=== PATIENT | male | born 1985 | race Two or more races ===

== ENCOUNTER 2020-08-28 10:14 | Outpatient (REF) | payer BC, SELFPAY ==
--- NOTE | ~2020-08-28 | XR_ITS ---
EXAMINATION: XR FOOT, RIGHT CLINICAL INFORMATION: Pain in right foot COMPARISON: None TECHNIQUE: AP, lateral, and oblique views of the right foot. FINDINGS: No acute fracture or dislocation. There are well-corticated ossific densities adjacent the distal fibula may reflect sequelae of remote prior trauma. Normal mineralization and alignment. No radiopaque foreign body. XR/XR foot RT min 3V IMPRESSION: No acute osseous abnormality of the right foot.
== END 2020-08-28 10:15 | disposition home or self-care (01) ==
LOC: HO.HMGCX 10:14
PROVIDERS: PCP Nurse Practitioner Family; Visit Provider Hospitalist
DX: M79.671 Pain in right foot (principal)
CPT/HCPCS: 73630

== ENCOUNTER → 2020-10-06 09:04 | Outpatient (BNVA) | payer BC, SELFPAY | PROVIDERS: PCP Nurse Practitioner Family; Visit Provider Orthopaedic Surgery ==

== ENCOUNTER 2020-10-09 05:59 | Day surgery (SDC) | payer BC, SELFPAY ==
--- NOTE | 2020-10-08 10:52 | HO.ANESPROP2 ---
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: Yes Do you presently have visiting nurse or other home services: No Smoking Status: Never smoker Second Hand Smoke Exposure: No Use of substances other than those prescribed or required for medical reasons: No Advance Directives: No Advance Directives Information Provided: Yes Advance Directives on File: No Recently lost weight without trying: No Current occupational status: employed Current occupation: [employer] Allergies Allergy/AdvReac Type Severity Reaction Status Date / Time No Known Allergies Allergy Verified 10/09/20 06:18 Exam Exam Date and Time: October 08, 2020 105 Assessment and Plan Assessment Anesthesia Assessment: Chart Reviewed Documented by User: Yasmany Mejía MD 10/09/20 08:02 PMFSH Past Medical History Medical History No significant medical problems Surgical History Surgical History No pertinent past surgical history Social History Social History Are you a primary career development coordinator to a significant other at home: Yes Do you presently have visiting nurse or other home services: No Smoking Status: Never smoker Second Hand Smoke Exposure: No Use of substances other than those prescribed or required for medical reasons: No Advance Directives: No Advance Directives Information Provided: Yes Advance Directives on File: No Recently lost weight without trying: No Current occupational status: employed Current occupation: Teacher Meds Allergies Allergy/AdvReac Type Severity Reaction Status Date / Time No Known Allergies Allergy Verified 10/09/20 06:18 Exam Airway Mallampati Class: II TM Dist: >3cm Neck ROM: Full Loose/Missing/Broken Teeth: No Heart: RRR Assessment and Plan Assessment Anesthesia Assessment: Anesthesia Plan Discussed and Chart Reviewed Final Anesthetic Review NPO: Yes ASA Class: I Final Preanesthetic Review: No Changes in Pt Med Stat, Meds/Allgs Chart Reviewed, Consent Obtained/Reviewed and Anes Risks/Benef Reviewed Patient Risk: Low Procedure Risk: Low Anesthetic Plan Anesthetic Plan: GA Disposition: Standard PACU
[2020-10-09] VITALS (8 sets, daily range): BP systolic 112–130; BP diastolic 52–72; PULSE 41–64; RESP 14–16; TEMP 36.7–36.8; O2SAT 97–100; BMI 24.4
[2020-10-09] MEDS: Lactated Ringers 1,000 ML 100 ML IVCONT (06:49)
--- NOTE | 2020-10-09 08:50 | W.PM.OPN ---
Operative Note Operative Note Date of Service: 10/09/20 Narrative: OPERATIVE PROCEDURE NOTE SURGEON: Dr. Allen (Lupis) [employer] AUTISM [employer]OR SPECIALIST: No physician PREOP DIAGNOSIS: Left Achilles tendon rupture POSTOP DIAGNOSIS: Same OPERATIVE PROCEDURE: Operative fixation left Achilles tendon CLINICAL NOTE: This gentleman was playing basketball when he suffered an injury. Subsequently was shown to be and Achilles tendon rupture. Therefore after explaining the risks benefits and alternatives and answering all his questions it was mutually agreed upon to carry following procedure OPERATIVE PROCEDURE Under general anesthetic the patient was rolled into the prone position. The left thigh had a pneumatic tourniquet cuff placed around it. This was inflated to 300 mm of mercury at the beginning of the case. The left foot and ankle then prepped and draped in standard fashion. Surgical time-out was then performed. Patient was identified. Procedure confirmed. Site confirmed. Medical and allergy history were reviewed. All other items were discussed and agreed upon. Standard approach to the Achilles tendon was carried out. Taken down through subcutaneous tissues. Hemostasis she is a long ways electrocautery. This brought us down to the level of the rupture which was a little bit higher up than the usual on. However was still through tendon. There. T9 was a divided. The 2 ends were identified. The wound was then thoroughly irrigated. And 0 Dexon was then used in order to repair each and individually to given little bit of both. Following this in a bunnel suture fashion a 2. FiberWire was weaved through the proximal an with 2 tails coming out distally and similarly on the distal portion of the tendon a suture was weaved through the tendon to bring 2 sutures out proximally. At this point with the foot in plantar flexion the opposite and sutures were brought together tied down tightly and secured x2. This successfully brought the Achilles tendon together. The foot could move easily to neutral with without much tension on the repair. 0 Dexon was then used in order to reinforce the repair. At this point proceeded to closure. Wound was thoroughly irrigated. The paratenon in skin or approximated using interrupted 2-0 Dexon. The skin was closed with subcuticular V lock sutures. Dermabond and Steri-Strips and sterile dressing were then applied. The tourniquet was let down total tourniquet time of 31 minutes. A dorsal splint with the foot at resting neutral was then placed. The patient then had the anesthesia reversed. They were transferred supine to the room bed then taken to recovery room in good condition. Intraoperatively there was less than 10 cc blood loss. No complications
--- NOTE | 2020-10-09 08:55 | MHC.SHP ---
Pre-Procedural Eval Section A The patient is an INPATIENT: No Changes since office visit: No Cold of Flu in the past 2 weeks, No New Medical Problems, No Changes in Medication and No Patient answered all questions The History & Physical has been completed within 30 days and I have reviewed it.: Yes Section B Chief Complaint: Strain of Achilles Tendon Allergies: Allergies Allergy/AdvReac Type Severity Reaction Status Date / Time No Known Allergies Allergy Verified 10/09/20 06:18 Plan I have reviewed the history and physical and performed a pertinent physical examination on my patient. No changes have occurred unless specified.
[2020-10-09] MEDS: oxyCODONE HCl Immed Release 5 MG TABLET PO (08:59)
== END 2020-10-09 10:54 | disposition home or self-care (01) ==
PROVIDERS: PCP Nurse Practitioner Family; Visit Provider Orthopaedic Surgery
PROC: (CPT 27650; principal; 2020-10-09 07:30)
DX: S86.012A Strain of left Achilles tendon, initial encounter (principal); X58.XXXA Exposure to other specified factors, initial encounter; Y93.67 Activity, basketball; Y92.9 Unspecified place or not applicable; Y99.8 Other external cause status
CPT/HCPCS: 27650; J0131; J0690; J1100; J1170; J1885; J2250; J2405

== ENCOUNTER → 2020-10-20 08:56 | Outpatient (BNVA) | payer BC, SELFPAY | PROVIDERS: PCP Nurse Practitioner Family; Visit Provider Physician Assistant ==

== ENCOUNTER → 2020-11-17 14:20 | Outpatient (BNVA) | payer BC, SELFPAY | PROVIDERS: PCP Nurse Practitioner Family; Visit Provider Orthopaedic Surgery ==

== ENCOUNTER → 2020-12-15 13:03 | Outpatient (BNVA) | payer BC, SELFPAY | PROVIDERS: PCP Nurse Practitioner Family; Visit Provider Orthopaedic Surgery ==

== ENCOUNTER → 2021-02-02 09:26 | Outpatient (BNVA) | payer BC, SELFPAY | PROVIDERS: PCP Nurse Practitioner Family; Visit Provider Orthopaedic Surgery ==

== ENCOUNTER → 2021-03-22 15:26 | Outpatient (BNVA) | payer BC, SELFPAY | PROVIDERS: PCP Nurse Practitioner Family; Visit Provider Orthopaedic Surgery ==

== ENCOUNTER → 2021-06-21 08:43 | Outpatient (BNVA) | payer BC, SELFPAY | PROVIDERS: PCP Nurse Practitioner Family; Visit Provider Orthopaedic Surgery ==

== ENCOUNTER 2021-08-17 17:00 | Outpatient (RCR) | payer BC, SELFPAY ==
--- NOTE | 2021-04-07 17:59 | MHC.PT.EP ---
[facility] [place] Office [place] Office [place] Office [address] Jose M Herrera [address] [phone] F: [phone] F: [phone] F: [phone] F: [phone] Physical Therapy Plan of Care Date of Evaluation: Date of Surgery: 10/09/20 Diagnosis: This is a 35 yo male presenting to skilled PT with a script for s/p Achilles tendon repair. Assessment: This is a 35 yo male presenting to skilled PT with a script for s/p Achilles tendon repair. Patient comes to PT s/p repair on 10/09. He had PT at another facility for about 2 months following the repair. He was happy with results but states that his surgeon wants him to continue PT. He returns to the ortho in June for follow up visit. He reports in general feeling good but occasionally gets discomfort at the base of the heel where the Achilles inserts with being on his feet for prolonged periods of time. He enjoys playing pickup basketball but reports discomfort/achy with jogging during and after still. States that he has continued to stretch since DC'd from PT. Assessment reveals pain that ranges up to a 7/10 at the worst these days. He demos slight decreased ROM on L vs R, decreased L ankle and hip strength, impaired gait pattern with decreased ankle control and stability, hypomobility at ankle joint as well as gross functional decline with dynamic/higher level activities and prolonged positions. He is here for return to sport goals. He would benefit from podiatry referral for arch support. He is a good candidate for skilled PT 2x/wk for 6 wks. 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 Manual therapy to restore motion and function. Therapeutic exercise to improve strength and flexibility. Neuromuscular re-education for posture and balance. Therapeutic activities to return to functional activities of daily living. Electronically signed by: Bobbi Dubuc, PT Please sign and return to therapist. Thank you for your referral.
--- NOTE | 2021-08-18 07:42 | MHC.PT.DC ---
[facility] [place] Office [place] Office [place] Office [address] Jose M Herrera [address] [phone] F: [phone] F: [phone] F: [phone] F: [phone] Physical Therapy Discharge Report Diagnosis: This is a 35 yo male presenting to skilled PT with a script for s/p Achilles tendon repair. Date of Surgery: 10/09/20 Date of Evaluation: 04/07/21 Date of Discharge: 08/18/21 Treatments to Date: 15 Cancellations to Date: 2 No Shows to Date: 0 Discharge Status: Achieved Goals Improved Function Independent with HEP Discharge Summary: Pt has come to 15 appointments starting in mar with evaluation. He demos normal gait pattern and has achieved all PT goals. He demos ROM and strength WNL and he was noted to have improved balance, strength and tissue density since starting PT. He has a copy of HEP and jump program. He has improved his LEFs to 79/80. At this time pt DC with HEP and no longer needs skilled physical therapy at this time. Electronically signed by: Bobbi Keith, PT Please sign and return to therapist. Thank you for your referral.
== END 2021-08-18 07:42 | disposition home or self-care (01) ==
LOC: HO.PTCHIC 17:00
PROVIDERS: PCP Nurse Practitioner Family; Visit Provider Orthopaedic Surgery
DX: Z98.890 Other specified postprocedural states (principal)
CPT/HCPCS: 97110; 97112; 97140; 97161; 97162; 97530

== ENCOUNTER 2022-04-04 07:03 | Outpatient (REF) | payer BC, SELFPAY ==
[2022-04-04 11:38] LABS: Appearance Urine Clear; Color Urine Yellow; Glucose Urine UA Negative (Negative); Leukocyte Esterase Urine Negative (Negative); Nitrite Urine Negative (Negative); PH 7.5 (5.0-9.0); Urine Blood Negative (Negative); Urine Ketones Negative (Negative); Urine Protein Negative (Neg-Trace)
[2022-04-04 12:21] LABS: TSH reflex Free T4 2.34 uIU/mL (0.32-4.0)
[2022-04-04 12:24] LABS: Alanine Aminotransferase 29 U/L (0-40); Albumin Level 4.4 g/dL (3.5-5.0); Alkaline Phosphatase 52 U/L (39-117); Anion Gap 13 (12-20); Aspartate Amino Transferase 23 U/L (5-37); Bilirubin Total 1.3 mg/dL (0.0-1.0); Blood Urea Nitrogen 15 mg/dL (9-16); Calcium 9.6 mg/dL (8.4-10.2); Carbon Dioxide 27 mmol/L (22-29); Chloride 102 mmol/L (96-108); Cholesterol 178 mg/dL; Estimated Glomerular Filt Rate > 60; Glucose Fasting 95 mg/dL (60-99); HDL Cholesterol 63 mg/dL; LDL Cholesterol Calculated 108 mg/dl; Potassium 3.8 mmol/L (3.3-5.1); Sodium 138 mmol/L (135-145); Total Protein 6.9 g/dL (6.5-8.0); Triglycerides 36 mg/dL
== END 2022-04-04 07:04 | disposition home or self-care (01) ==
LOC: HO.HMGCLDS 07:03
PROVIDERS: PCP Nurse Practitioner Family; Visit Provider Nurse Practitioner Family
DX: Z00.00 Encounter for general adult medical examination without abnormal findings (principal)
CPT/HCPCS: 36415; 80053; 80061; 81003; 84443

== ENCOUNTER 2023-04-21 08:05 | Outpatient (AMB) | payer BC, SELFPAY ==
--- NOTE | 2023-04-21 08:10 | MHC.OFFWIV ---
Intake Vital Signs 04/21/23 08:11 Weight 177 lb BP 110/60 Blood Pressure Location Lt brachial Position Sitting Pulse 47 L Pulse Source Pulse Oximeter Pulse Oximetry (%) 98 Oxygen Delivery Method Room Air Intake Visit Reasons: EP ?Strep Intake Note: Patient here for possible strep throat, he states sore throat started last night. Patient Tobacco Use Status: Never used Tobacco Allergies No Known Allergies Allergy (Verified 04/21/23 08:12) Do you need a note to return to daycare/school/sports/work: Yes HPI HPI Comments History of Present Illness Details This is a 37-year-old male who presents to the office today for sick visit. Patient complaining of sore throat, congestion/rhinorrhea, and a mild dry cough with associated fatigue x1 day. He denies any fevers or chills. He denies any throat swelling or trouble swallowing. [facility] Medical History No significant medical problems Surgical History No pertinent past surgical history Family History Maternal Uncle Substance use disorder Father Substance use disorder Social History Housing: House Are you a primary director career services to a significant other at home: Yes Do you presently have visiting nurse or other home services: No Patient Tobacco Use Status: Never used Tobacco e-Cigarette/Vaping Use: Never Used Second Hand Smoke Exposure: No service: No Current occupational status: employed Current occupation: Teacher [employer] Current occupational exposures/hazards: Yes Cognitive needs: No Hearing needs: No Vision needs: No Review of Systems Const All systems reviewed & are unremarkable except as noted in HPI and below Reports no additional complaints Eyes Reports no additional complaints ENT Reports no additional complaints Card Reports no additional complaints Resp Reports no additional complaints GI Reports no additional complaints Reports no additional complaints Musc Reports no additional complaints Skin/Breast Reports system reviewed and no additional complaints, except as documented Neuro Reports no additional complaints Psych Reports no additional complaints Endo Reports no additional complaints Ata/Lymph Reports no additional complaints Aller/Immun Reports no additional complaints Physical Exam Vital Signs: Last Vital Signs Pulse 47 L 04/21/23 08:11 BP 110/60 04/21/23 08:11 Pulse Ox 98 04/21/23 08:11 Oxygen Delivery Method Room Air 04/21/23 08:11 Const Other: Vital signs reviewed. Constitutional: Non-toxic appearing. No acute distress. Well-developed and well-nourished. HEENT: Normocephalic and atraumatic. Moist mucous membranes. Mild posterior pharyngeal erythema but no exudates. Skin: Warm and dry. No rashes or lesions noted. Neck: Full and painless range of motion. No cervical lymphadenopathy. Cardio: Regular rate and rhythm. No lower extremity edema. No JVD. Pulmonary: No respiratory distress. No accessory muscle usage. Gastrointestinal: Soft, nontender, and nondistended in all 4 quadrants. Musculoskeletal: Normal range of motion in joints throughout the body. No deformity or other signs of injury. Neuro: Alert and oriented x4. Cranial nerves 2-12 grossly intact. No focal deficits appreciated. Psych: Normal mood and affect. Results AMB Rapid Strep AMB Rapid Strep Negative Last Edit by JEROMY Hill on 04/21/23 08:24 Results Reviewed Results Reviewed: Laboratory Last Values Strep Scn Rapid Clinic Negative 04/21/23 08:23 Assessment & Plan Assessment & Plan (1) Viral pharyngitis: Code(s): J02.9 - Acute pharyngitis, unspecified (2) Viral URI with cough: Code(s): J06.9 - Acute upper respiratory infection, unspecified Plan This 37 year in the office complaining of sore throat, congestion/, dry cough, and mild fatigue x1 day. His rapid strep test was negative. Patient's vital signs are stable he is overall nontoxic appearing. Patient presenting with signs and symptoms most consistent with acute respiratory tract infection and viral pharyngitis. Recommended symptomatic management including rest, increased fluids, advil/tylenol for pain/fever, and over the counter throat lozenges/decongestants. Patient advised to follow up here or go to the emergency room for worsening/persistent symptoms. Patient verbalized understanding and is agreeable with the plan. Orders: Orders AMB Rapid Strep Screen Today Z13.9 - Encounter for screening, unspecified Coding Level of Care Code Est Pt Level 3 (11869) Diagnoses Viral pharyngitis J02.9 Viral URI with cough J06.9
[2023-04-21 08:11] VITALS: BP 110/60; PULSE 47; O2SAT 98
== END 2023-04-21 08:54 | disposition home or self-care (01) ==
PROVIDERS: PCP Nurse Practitioner Family; Visit Provider Physician Assistant Medical
DX: J02.9 Acute pharyngitis, unspecified (principal); J06.9 Acute upper respiratory infection, unspecified
CPT/HCPCS: 87880; 99213

== ENCOUNTER 2023-04-21 08:28 | Outpatient (REF) | payer BC, SELFPAY ==
[2023-04-21 11:49] LABS: Appearance Urine Clear; Color Urine Yellow; Glucose Urine UA Negative (Negative); Leukocyte Esterase Urine Negative (Negative); Nitrite Urine Negative (Negative); PH 8.5 (5.0-9.0); Specific Gravity - Urine 1.025 (1.005-1.025); Urine Blood Negative (Negative); Urine Ketones Negative (Negative); Urine Protein Trace mg/dL (Neg-Trace)
[2023-04-21 11:54] LABS: MANUAL DIFF FLAG NO
[2023-04-21 12:05] LABS: Basophils Percent Auto 0.1 % (0-2); Eosinophils Absolute Auto 0.2 X10*3/uL (0.0-0.4); Eosinophils Percent Auto 1.8 % (0-4); Hematocrit 49.1 % (42.0-52.0); Hemoglobin 16.1 g/dl (14.0-18.0); Imm Gran Abs Auto 0.01 X10*3/uL (0.00-0.03); Imm Gran Pct Auto 0.1 % (0.0-0.4); Lymphocytes Percent Auto 23.7 % (20-40); Mean Corpuscular HGB Conc 32.8 g/dl (31.0-36.0); Mean Corpuscular Hemoglobin 29.5 pg (27.0-33.0); Mean Corpuscular Volume 90.1 fL (80.0-98.0); Mean Platelet Volume 11.1 fL (9.4-12.4); Monocytes Absolute Auto 0.8 X10*3/uL (0.1-1.2); Monocytes Percent Auto 9.6 % (2-11); Neutrophils Absolute Auto 5.5 x10*3/uL (2.0-8.3); Neutrophils Percent Auto 64.7 % (45-73); Platelet Count 191 X10*3/uL (160-400); Red Blood Count 5.45 X10*6/uL (4.60-5.80); Red Cell Distribution Width 12.2 % (11.0-16.0); White Blood Count 8.5 X10*3/uL (4.8-10.8)
[2023-04-21 13:09] LABS: Alanine Aminotransferase 27 U/L (0-40); Albumin Level 4.4 g/dL (3.5-5.0); Alkaline Phosphatase 54 U/L (39-117); Anion Gap 14 (12-20); Aspartate Amino Transferase 50 U/L (5-37); Bilirubin Total 2.2 mg/dL (0.0-1.0); Blood Urea Nitrogen 15 mg/dL (9-16); Calcium 9.9 mg/dL (8.4-10.2); Carbon Dioxide 27 mmol/L (22-29); Chloride 102 mmol/L (96-108); Cholesterol 177 mg/dL (<200); Estimated Glomerular Filt Rate > 60; Glucose Fasting 91 mg/dL (60-99); HDL Cholesterol 71 mg/dL (>40); LDL Cholesterol Calculated 96 mg/dL (<100); Potassium 4.2 mmol/L (3.3-5.1); Sodium 139 mmol/L (135-145); Total Protein 7.4 g/dL (6.5-8.0); Triglycerides 52 mg/dL (<150)
[2023-04-21 13:20] LABS: TSH reflex Free T4 1.29 uIU/mL (0.32-4.0)
== END 2023-04-21 08:29 | disposition home or self-care (01) ==
LOC: HO.HMGCLDS 08:28
PROVIDERS: PCP Nurse Practitioner Family; Visit Provider Nurse Practitioner Family
DX: Z00.00 Encounter for general adult medical examination without abnormal findings (principal); Z20.2 Contact with and (suspected) exposure to infections with a predominantly sexual mode of transmission; Z13.220 Encounter for screening for lipoid disorders; Z13.29 Encounter for screening for other suspected endocrine disorder
CPT/HCPCS: 36415; 80053; 80061; 81003; 84443; 85025

== ENCOUNTER 2023-05-02 10:28 | Outpatient (REF) | payer BC, SELFPAY ==
--- NOTE | ~2023-05-02 | US_ITS ---
EXAMINATION: US ABDOMEN COMPLETE CLINICAL INFORMATION: Elevated liver enzymes. COMPARISON: Ultrasound abdomen complete 08/03/2017. TECHNIQUE: Real-time imaging of the abdominal viscera. FINDINGS: PANCREAS: Pancreatic head is unremarkable, body and tail are obscured. ABDOMINAL AORTA: The proximal, mid, and distal segments are normal in caliber. INFERIOR VENA CAVA: Visualized portions are normal. LIVER: Multiple hyperechoic lesions are again identified, in the left lobe measuring 1.9 x 1.6 cm, previously 2.1 x 1.8 x 2.5 cm. In the right lobe, 0.8 x 0.7 x 0.7 cm subcapsular anterior superior hyperechoic lesion is seen, not previously documented. 1.0 x 1.1 x 1.0 cm right hepatic lesion previously measured 1.2 cm maximally. Second adjacent right hepatic lesion seen on previous study not identified on today's study. The liver is normal in size. The liver contour is normal. Parenchymal echogenicity is normal. There is no intrahepatic biliary duct dilatation seen. GALLBLADDER: Echogenic bile with floating debris. The gallbladder is physiologically distended without evidence of stones, polyps, wall thickening or pericholecystic fluid. COMMON BILE DUCT: Normal in caliber measuring 0.37 cm in diameter. RIGHT KIDNEY: Normal. No hydronephrosis. No renal calculi or focal parenchymal lesions. The kidney measures 11.7 cm in maximum dimension. LEFT KIDNEY: Normal. No hydronephrosis. No renal calculi or focal parenchymal lesions. The kidney measures 10.8 cm in maximum dimension. SPLEEN: Normal. The spleen measures 10.7 cm in maximum dimension. FREE FLUID: None. US/US abdomen complete IMPRESSION: Redemonstration multiple hepatic hyperechoic lesions consistent with hemangiomas. Gallbladder echogenic bile with debris.
== END 2023-05-02 10:29 | disposition home or self-care (01) ==
LOC: HO.HMGCX 10:28
PROVIDERS: PCP Nurse Practitioner Family; Visit Provider Nurse Practitioner Family
DX: R74.8 Abnormal levels of other serum enzymes (principal)
CPT/HCPCS: 76700

== ENCOUNTER 2023-06-21 11:08 | Outpatient (REF) | payer BC, SELFPAY ==
[2023-06-21 13:41] LABS: Bilirubin Direct 0.4 mg/dL (0.0-0.5); Bilirubin Total 1.2 mg/dL (0.0-1.0)
[2023-06-22 08:02] LABS: HBS Num1 51.44 mIU/mL (0-7.99); HBc Num1 0.12 S/CO (0.00-0.79); HBsAGNum1 0.32 S/CO (0.00-0.99); Hepatitis A Antibody IgM 0.09 Index (0-0.79); Hepatitis B Core Antibody Nonreactive (Nonreactive); Hepatitis B Surface Antigen Negative (Negative); ~HepC Num1 0.36 S/CO (0.00-0.79); ~Hepatitis A Antibody IgM Nonreactive (Nonreactive); ~Hepatitis B Surface Antibody REACTIVE (Nonreactive); ~Hepatitis C Antibody Nonreactive (Nonreactive)
== END 2023-06-21 11:09 | disposition home or self-care (01) ==
LOC: HO.HMGCLDS 11:08
PROVIDERS: PCP Nurse Practitioner Family; Visit Provider Nurse Practitioner Family
DX: R74.8 Abnormal levels of other serum enzymes (principal); R17 Unspecified jaundice
CPT/HCPCS: 36415; 82247; 82248; 86704; 86706; 86709; 86803; 87340

== ENCOUNTER 2023-07-25 10:56 | Outpatient (AMB) | payer BC, SELFPAY ==
--- NOTE | 2023-07-25 10:58 | MHC.PC.OV ---
Vital Signs 07/25/23 11:00 Height 6 ft Weight 174 lb BMI 23.6 BP 110/70 Blood Pressure Location Lt brachial Position Sitting Pulse 61 Pulse Source Pulse Oximeter Pulse Oximetry (%) 99 Oxygen Delivery Method Room Air Intake Visit Reasons: PE Intake Note: Patient here for physical exam and labs were done. Allergies No Known Allergies Allergy (Verified 07/25/23 11:01) Tobacco use date assessed: 07/25/23 Dental Screening Dental Screen Date: 07/25/23 Did you have a dental visit in the last 12 months?: Yes Did you have a dental problem in the last 6 months where you did not have access to dental care?: No Was dental information given to patient?: Patient has dentist HPI PE HPI Details Pt is here for a PE. Will order labs. 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 1. Little interest or pleasure in doing things: not at all 2. Feeling down, depressed, or hopeless: not at all 3. Trouble falling or staying asleep, or sleeping too much: not at all 4. Feeling tired or having little energy: several days 5. Poor appetite or overeating: not at all 6. Feeling bad about yourself - or that you are a failure or have let yourself or your family down: not at all 7. Trouble concentrating on things, such as reading the newspaper or watching television: not at all 8. Moving or speaking so slowly that other people could have noticed. Or the opposite - being so fidgety or restless that you have been moving around a lot more than usual: not at all 9. Thoughts that you would be better off or of hurting yourself in some way: not at all Total score: 1 Depression Screening Interpretation: Negative Depression Screening Done: Yes 09045 - PHQ-9 Billing: Yes Source: Developed by Drs. Roberto Carlos Taylor, Stephanie Funes, Jesse Chauhan and colleagues, with an educational ervin from [email or web address]. Thrive Questionnaire Date Thrive assessed: 07/25/23 I am a: Patient What is your living situation today?: I have a steady place to live Within the past 12 months, did the food you bought not last and you didn't have the money to get more?: Never true Within the past 12 months, did you worry whether your food would run out before you got money to buy more?: Never true Do you have trouble paying for medicines?: No Do you have trouble getting transportation to medical appointments?: No Do you have trouble paying your heating and electricity bill?: No Do you have trouble taking care of your child, family member or friend?: No Do you have trouble with day-to-day activities such as bathing, preparing meals, shopping, managing finances, etc.?: No Are you currently unemployed and looking for a job?: No Are you interested in more education?: No AUDIT C Alcohol Use Questionnaire (AUDIT-C) 1. How often do you have a drink containing alcohol?: Monthly or less 2. How many drinks containing alcohol do you have on a typical day when you are drinking?: 3 or 4 3. How often do you have six or more drinks on one occasion?: Never Total Score: 2 CHRISTINE-7 AMB Questionnaire CHRISTINE-7 Date CHRISTINE - 7 assessed: 07/25/23 Feeling nervous, anxious, or on edge: 0 = Not at all Not being able to stop or control worryin = Not at all Worrying too much about different things: 0 = Not at all Trouble relaxin = Not at all Being so restless that it is hard to sit still: 0 = Not at all Becoming easily annoyed or irritable: 0 = Not at all Feeling afraid as if something awful might happen: 0 = Not at all Total CHRISTINE-7 score (0-4 normal; 5-9 mild; 10-14 moderate; 15-21 severe): 0 Source: Developed by Drs. Roberto Carlos Taylor, Stephanie Funes, Jesse Chauhan and colleagues, with an educational ervin from [email or web address]. CHRISTINE-7 Assessment Billing CHRISTINE-7 Assessment Tool: CHRISTINE-7 Assessment 35419 Review of Systems Const Denies chills and Denies fever(s) Eyes Denies blurry vision ENT Denies vertigo, Denies dizziness and Denies sore throat Card Denies chest pain at rest, Denies chest pain with activity, Denies diaphoresis, Denies dyspnea and Denies dyspnea on exertion Resp Denies cough, Denies dyspnea, Denies dyspnea on exertion and Denies wheezing GI Denies abdominal pain, Denies melena, Denies hematochezia, Denies constipation, Denies diarrhea and Denies loose stools Denies hematuria Musc Denies numbness and Denies tingling Skin/Breast Denies lesions Neuro Denies vertigo, Denies dizziness, Denies numbness and Denies tingling Psych Denies anxiety, Denies depression, Denies homicidal ideation, Denies suicidal ideation and Denies other (substance abuse) Aller/Immun Denies wheezing Physical exam (Primary Care) Vital Signs: Last Vital Signs Pulse 61 07/25/23 11:00 BP 110/70 07/25/23 11:00 Pulse Ox 99 07/25/23 11:00 Oxygen Delivery Method Room Air 07/25/23 11:00 BMI result Body Mass Index 23.6 Tobacco/Smoking Status: Tobacco use Status Tobacco use date assessed 07/25/23 07/25/23 11:03 Patient Tobacco Use Status Never used Tobacco 07/25/23 11:00 e-Cigarette/Vaping Use Never Used 07/25/23 11:00 Depression Screening Interpretation: Negative Thrive Assessment: Date of Thrive Assessment Date Thrive assessed 07/20/22 07/25/23 11:00 Const General: cooperative Nutritional Appearance: well nourished Orientation/consciousness: patient oriented x3 HENMT Head: Yes normal to inspection, Yes normocephalic and Yes atraumatic Ears: TM's normal bilaterally Eyes General: appearance normal, both eyes and all related structures Alignment and Position: alignment normal and position normal Neck Neck: Yes normal visual inspection and Yes no lymphadenopathy Thyroid: Thyroid normal Resp Effort & Inspection: normal respiratory effort Auscultation: clear to auscultation bilaterally Cardio Rate: regular rate Rhythm: regular rhythm Heart sounds: S1 normal heart sound present, S2 normal heart sound present and no murmurs GI Palpation (GI): Soft to palpation and nontender Auscultation: normal bowel sounds Male General Exam: Yes normal external exam Penis: normal penis Scrotum: scrotum normal, testes descended bilaterally and no inguinal hernias Testes: no testicular mass Skin Rashes: no rashes Neuro General: patient oriented x3, moves all extremities, no focal motor deficits and deep tendon reflexes 2+ bilaterally Romberg Test: Negative Psych Appearance: grossly normal Mental Status: mental status grossly normal Speech and movement: Normal speech and movement present Affect: normal affect Attitude: cooperative Thought process: Normal thought process present Thought content: Normal thought content present Insight: Good insight present (Psych) Judgement: Good judgement present (Psych) Assessment and Plan Assessment & Plan (1) Physical exam, annual: Code(s): Z. - Encounter for general adult medical examination without abnormal findings Plan: Labs ordered Plan The patient agreed to the use of a medical imaging director for this encounter. Scribed for CATY Escalante by Asmita George medical imaging director, on 07/25/2023 at 11:15 EST. Orders: Orders Complete Blood Count Auto Diff Today Z00.00 - Encounter for general adult medical examination without abnormal findings Comprehensive [place]. Panel Fast Today Z00.00 - Encounter for general adult medical examination without abnormal findings TSH reflex Free T4 Today Z00.00 - Encounter for general adult medical examination without abnormal findings Lipid Panel Today Z00.00 - Encounter for general adult medical examination without abnormal findings UA CC w/rflx Micro + Cult Today Z00.00 - Encounter for general adult medical examination without abnormal findings Coding Level of Care Code Est Pt Prev Care 40-64y(61960) Diagnoses Physical exam, annual Z00.00 Additional Codes CHRISTINE-7 Assessment Billing - CHRISTINE-7 Assessment Tool: CHRISTINE-7 Assessment 95385 ([id number])
[2023-07-25 11:00] VITALS: BP 110/70; PULSE 61; O2SAT 99; BMI 23.6
== END 2023-07-25 11:20 | disposition home or self-care (01) ==
PROVIDERS: Visit Provider Nurse Practitioner Family
DX: Z00.00 Encounter for general adult medical examination without abnormal findings (principal)
CPT/HCPCS: 99396

== ENCOUNTER 2023-07-25 11:22 | Outpatient (REF) | payer BC, SELFPAY ==
[2023-07-25 13:29] LABS: Appearance Urine Cloudy; Color Urine Yellow; Glucose Urine UA Negative (Negative); Leukocyte Esterase Urine Negative (Negative); Nitrite Urine Negative (Negative); Specific Gravity - Urine 1.025 (1.005-1.025); Urine Blood Negative (Negative); Urine Ketones Negative (Negative); Urine Protein Negative (Neg-Trace)
[2023-07-25 13:30] LABS: MANUAL DIFF FLAG NO
[2023-07-25 13:34] LABS: Basophils Percent Auto 0.2 % (0-2); Eosinophils Absolute Auto 0.1 X10*3/uL (0.0-0.4); Eosinophils Percent Auto 2.1 % (0-4); Hematocrit 45.8 % (42.0-52.0); Hemoglobin 15.3 g/dl (14.0-18.0); Imm Gran Abs Auto 0.01 X10*3/uL (0.00-0.03); Imm Gran Pct Auto 0.2 % (0.0-0.4); Lymphocytes Absolute Auto 1.9 X10*3/uL (1.2-4.9); Lymphocytes Percent Auto 43.8 % (20-40); Mean Corpuscular HGB Conc 33.4 g/dl (31.0-36.0); Mean Corpuscular Hemoglobin 29.9 pg (27.0-33.0); Mean Corpuscular Volume 89.6 fL (80.0-98.0); Mean Platelet Volume 10.9 fL (9.4-12.4); Monocytes Absolute Auto 0.3 X10*3/uL (0.1-1.2); Monocytes Percent Auto 7.7 % (2-11); Platelet Count 193 X10*3/uL (160-400); Red Blood Count 5.11 X10*6/uL (4.60-5.80); Red Cell Distribution Width 11.9 % (11.0-16.0); White Blood Count 4.3 X10*3/uL (4.8-10.8)
[2023-07-25 13:57] LABS: Alanine Aminotransferase 21 U/L (0-40); Albumin Level 4.3 g/dL (3.5-5.0); Alkaline Phosphatase 57 U/L (39-117); Anion Gap 9 (12-20); Aspartate Amino Transferase 23 U/L (5-37); Blood Urea Nitrogen 15 mg/dL (9-16); Calcium 9.6 mg/dL (8.4-10.2); Carbon Dioxide 30 mmol/L (22-29); Chloride 103 mmol/L (96-108); Cholesterol 188 mg/dL (<200); Estimated Glomerular Filt Rate > 60; Glucose Fasting 86 mg/dL (60-99); HDL Cholesterol 65 mg/dL (>40); LDL Cholesterol Calculated 115 mg/dL (<100); Sodium 138 mmol/L (135-145); Total Protein 7.2 g/dL (6.5-8.0); Triglycerides 43 mg/dL (<150)
[2023-07-25 14:22] LABS: TSH reflex Free T4 1.14 uIU/mL (0.32-4.0)
== END 2023-07-25 11:23 | disposition home or self-care (01) ==
LOC: HO.HMGCLDS 11:22
PROVIDERS: PCP Nurse Practitioner Family; Visit Provider Nurse Practitioner Family
DX: Z00.00 Encounter for general adult medical examination without abnormal findings (principal)
CPT/HCPCS: 36415; 80053; 80061; 81003; 84443; 85025

== ENCOUNTER 2023-08-16 09:45 | Outpatient (REF) | payer BC, SELFPAY ==
[2023-08-16 14:25] LABS: Influenza A PCR POSITIVE (Negative); Influenza B PCR NEGATIVE (Negative); Resp Syncy Virus RNA Qual PCR NEGATIVE (Negative); SARS COV2 PCR INHOUSE NEGATIVE (Negative)
== END 2023-08-16 09:46 | disposition home or self-care (01) ==
LOC: HO.HMGCLNP 09:45
PROVIDERS: Visit Provider Physician Assistant
DX: Z11.52 Encounter for screening for COVID-19 (principal); Z20.822 Contact with and (suspected) exposure to COVID-19; J11.1 Influenza due to unidentified influenza virus with other respiratory manifestations
CPT/HCPCS: 0241U

== ENCOUNTER 2023-08-16 09:45 | Outpatient (AMB) | payer BC, SELFPAY ==
--- NOTE | 2023-08-16 09:48 | MHC.OFFWIV ---
Intake Vital Signs 08/16/23 09:49 Height 6 ft Weight 181 lb BMI 24.5 BP 120/76 Blood Pressure Location Lt brachial Position Sitting Pulse 74 Pulse Source Pulse Oximeter Temp 100.7 F H Temp Source Temporal Artery Scan Pulse Oximetry (%) 97 Oxygen Delivery Method Room Air Intake Visit Reasons: EP Headache, fever, cough (masked) Intake Note: pt is here today for headache fever cough started monday Patient Tobacco Use Status: Never used Tobacco Allergies No Known Allergies Allergy (Verified 08/16/23 09:53) Do you need a note to return to daycare/school/sports/work: Yes HPI HPI Comments History of Present Illness Details Patient is a 38yo M who presents to office with flu like illness He started with symptoms Monday He thought cold; had congestion, cough, headache Monday home sick Monday fever onset; 101 Taking tylenol at home for it. Last dose was last night +body aches, fatigue, congestion, cough okay appetitie without nausea, vomiting or diarrhea Tried OTC cough.cold symptoms and liquid IV COVID test negative at home Daughter +sick on Monday [facility] Medical History No significant medical problems Surgical History No pertinent past surgical history Family History Maternal Uncle Substance use disorder Father Substance use disorder Social History Housing: House Are you a primary healthcare management to a significant other at home: Yes Do you presently have visiting nurse or other home services: No Patient Tobacco Use Status: Never used Tobacco e-Cigarette/Vaping Use: Never Used Second Hand Smoke Exposure: No service: No Current occupational status: employed 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 Cognitive needs: No Hearing needs: No Vision needs: No Review of Systems Const Reports body aches, Reports chills, Reports fatigue and Reports fever(s) Eyes Denies blurry vision ENT Denies dizziness, Denies otalgia, Reports nasal congestion, Reports nasal discharge and Denies sore throat Card Denies chest pain and Denies dyspnea Resp Reports cough and Denies dyspnea GI Denies abdominal pain, Denies diarrhea, Denies nausea and Denies vomiting Neuro Denies dizziness Endo Reports fatigue Physical Exam Vital Signs: Last Vital Signs Temp 100.7 F H 08/16/23 09:49 Pulse 74 08/16/23 09:49 BP 120/76 08/16/23 09:49 Pulse Ox 97 08/16/23 09:49 Oxygen Delivery Method Room Air 08/16/23 09:49 BMI result Body Mass Index 24.5 General: Non-toxic, NAD. Speaking full sentences. Skin: Warm dry throughout Eye: EOMI HENT: Airway patent. Uvula midline. No pharyngeal erythema or edema. No WAIST FITTER. Bilateral canals clear. TM slight-erythematous, non-bulging. No TM perforation or hemotympanum noted. Respiratory: CTA bilaterally. No wheezes, rales or rhonchi Cardiac: RRR. No murmur MSK: Full ROM extremities. Neurology: A/O, No aphasia or facial droop. Gait without abnormality Psych: Good mood and affect Assessment & Plan Assessment & Plan (1) Influenza-like illness: Code(s): J11.1 - Influenza due to unidentified influenza virus with other respiratory manifestations Plan: control fever with tylenol/motrin fluids/rest rsv/flu/covid swab obtained Call office with concerns Answered all questions at time of discharge Work note provided. Orders: Orders SARS-CoV2/FLU/RSV Today J11.1 - Influenza due to unidentified influenza virus with other respiratory manifestations Medications: New oseltamivir (Tamiflu) 75 mg PO BID 5 days 10 caps 0RF Coding Level of Care Code Est Pt Level 3 (61358) Diagnoses Influenza-like illness J11.1
[2023-08-16 09:49] VITALS: BP 120/76; PULSE 74; TEMP 38.2; O2SAT 97; BMI 24.5
== END 2023-08-16 10:11 | disposition home or self-care (01) ==
PROVIDERS: PCP Nurse Practitioner Family; Visit Provider Physician Assistant
DX: J11.1 Influenza due to unidentified influenza virus with other respiratory manifestations (principal)
CPT/HCPCS: 99213

== ENCOUNTER 2024-07-31 13:11 | Outpatient (REF) | payer BC, SELFPAY ==
--- OUTSIDE RECORDS SUMMARY | 2024-07-31 15:08 | XMS_ITS | Clinical Summary ---
Author Organization [employer] [facility] ity Address [address] [place] [address] Care Team Providers Care Net Fisher Name Role Phone Unavailable Primary Care Provider Unavailabl e Social History Tobacco Use Types Packs/Day Years Used Date Smoking Tobacco: Never Assessed Sex and Gender Information Value Date Recorded Sex Assigned at Not on file Gender Identity Not on file Sexual Orientation Not on file Plan of Treatment Health Maintenance Due Date Last Done Comments Hepatitis B Vaccines (1 of 3 - 19+ 3-dose series) 2002 Cholesterol Screening (Lipid Panel) 06/07/2022 Depression Screening 06/07/2022 HIV Screening 06/07/2022 Hepatitis C Screening 06/07/2022 Social Influencers of Health Screening 06/07/2022 COVID-19 Vaccine (1 - 2023-2 5 season) 2024 Influenza Vaccine (#1) 2024 DTaP,Tdap,and Td Vaccines (2 - Td or Tdap) 04/22/2032 04/22/2022 HIB Vaccines Aged Out No longer eligi ble based on patient's age to complete this topic HPV Vaccines Aged Out No longer eligi ble based on patient's age to complete this topic Hepatitis A Vaccines Aged Out No long er eligible based on patient's age to complete this topic IPV Vaccines Aged Out No longer eligi ble based on patient's age to complete this topic MMR Vaccines Aged Out No longer eligi ble based on patient's age to complete this topic Meningococcal ACWY Vaccine Aged Out N o longer eligible based on patient's age to complete this topic Pneumococcal Vaccine: Pediat rics (0 to 5 Years) and At-Risk Patients (6 to 64 Years) Aged Out No longer eligi ble based on patient's age to complete this topic RSV Immunization Patients Un marcy 20 months Aged Out No longer eligible b ased on patient's age to complete this topic Varicella Vaccines Aged Out No longer eligible based on patient's age to complete this topic
[2024-07-31 16:29] LABS: MANUAL DIFF FLAG NO
[2024-07-31 16:34] LABS: Basophils Percent Auto 0.1 % (0-2); Eosinophils Absolute Auto 0.2 X10*3/uL (0.0-0.4); Eosinophils Percent Auto 2.1 % (0-4); Hematocrit 43.5 % (42.0-52.0); Hemoglobin 14.3 g/dl (14.0-18.0); Imm Gran Abs Auto 0.03 X10*3/uL (0.00-0.03); Imm Gran Pct Auto 0.4 % (0.0-0.4); Lymphocytes Percent Auto 23.9 % (20-40); Mean Corpuscular HGB Conc 32.9 g/dl (31.0-36.0); Mean Corpuscular Hemoglobin 29.4 pg (27.0-33.0); Mean Corpuscular Volume 89.3 fL (80.0-98.0); Monocytes Absolute Auto 0.5 X10*3/uL (0.1-1.2); Monocytes Percent Auto 6.6 % (2-11); Neutrophils Absolute Auto 5.5 x10*3/uL (2.0-8.3); Neutrophils Percent Auto 66.9 % (45-73); Platelet Count 196 X10*3/uL (160-400); Red Blood Count 4.87 X10*6/uL (4.60-5.80); Red Cell Distribution Width 11.9 % (11.0-16.0); White Blood Count 8.2 X10*3/uL (4.8-10.8)
[2024-07-31 16:57] LABS: Alanine Aminotransferase 18 U/L (0-40); Albumin Level 4.1 g/dL (3.5-5.0); Alkaline Phosphatase 58 U/L (39-117); Aspartate Amino Transferase 26 U/L (5-37); Bilirubin Direct 0.4 mg/dL (0.0-0.5); Bilirubin Total 1.3 mg/dL (0.0-1.0); Lactate Dehydrogenase 199 U/L (118-273); Total Protein 7.2 g/dL (6.5-8.0)
== END 2024-07-31 13:12 | disposition home or self-care (01) ==
LOC: HO.HMGCLDS 13:11
PROVIDERS: PCP Nurse Practitioner Family; Visit Provider Nurse Practitioner Family
DX: R17 Unspecified jaundice (principal); D72.819 Decreased white blood cell count, unspecified
CPT/HCPCS: 36415; 80076; 83615; 85025

== ENCOUNTER 2024-08-06 11:02 | Outpatient (REF) | payer BC, SELFPAY ==
--- OUTSIDE RECORDS SUMMARY | 2024-08-06 12:55 | XMS_ITS | Clinical Summary ---
Author Organization [facility] ity Address [address] [place] [address] Care Team Providers Care Land Measurer Name Role Phone Unavailable Primary Care Provider [...]
[2024-08-06 14:18] LABS: Alanine Aminotransferase 29 U/L (0-40); Albumin Level 4.4 g/dL (3.5-5.0); Alkaline Phosphatase 59 U/L (39-117); Anion Gap 12 (12-20); Aspartate Amino Transferase 32 U/L (5-37); Bilirubin Direct 0.4 mg/dL (0.0-0.5); Bilirubin Total 1.5 mg/dL (0.0-1.0); Blood Urea Nitrogen 14 mg/dL (9-16); Calcium 9.2 mg/dL (8.4-10.2); Carbon Dioxide 28 mmol/L (22-29); Chloride 104 mmol/L (96-108); Cholesterol 172 mg/dL (<200); Estimated Glomerular Filt Rate > 60; Glucose Fasting 85 mg/dL (60-99); HDL Cholesterol 65 mg/dL (>40); LDL Cholesterol Calculated 101 mg/dL (<100); Potassium 4.5 mmol/L (3.3-5.1); Sodium 139 mmol/L (135-145); Total Protein 7.8 g/dL (6.5-8.0); Triglycerides 33 mg/dL (<150)
== END 2024-08-06 11:03 | disposition home or self-care (01) ==
LOC: HO.HMGCLDS 11:02
PROVIDERS: PCP Nurse Practitioner Family; Visit Provider Nurse Practitioner Family
DX: Z00.00 Encounter for general adult medical examination without abnormal findings (principal); R17 Unspecified jaundice; R00.1 Bradycardia, unspecified
CPT/HCPCS: 36415; 80053; 80061; 82248; 96127

== ENCOUNTER 2024-08-06 11:02 | Outpatient (AMB) | payer BC, SELFPAY ==
--- NOTE | 2024-08-06 11:04 | A.OFFPC_ITS ---
Vital Signs 08/06/24 11:05 Height 6 ft Weight 173 lb BMI 23.5 BP 110/68 Blood Pressure Location Lt brachial Position Sitting Pulse 48 L Pulse Source Pulse Oximeter Temp 98.4 F Temp Source Oral Pulse Oximetry (%) 98 Oxygen Delivery Method Room Air Intake Visit Reasons: PE Intake Note: Pt is here today for PE. Allergies No Known Allergies Allergy (Verified 08/06/24 11:05) Medication List - Last Reconciled 08/06/24 by KOMAL Pillai No Known Home Meds Tobacco use date assessed: 08/06/24 Dental Screening Dental Screen Date: 08/06/24 Did you have a dental visit in the last 12 months?: Yes Did you have a dental problem in the last 6 months where you did not have access to dental care?: No Was dental information given to patient?: Patient has dentist HPI PE HPI Details History of Present Illness The patient is a 39-year-old male presenting with a primary concern for a physical examination. As part of his ongoing health assessment, recent laboratory tests indicated an elevated bilirubin level, recorded at 1.3 mg/dL, compared to a previous level of 2.0 mg/dL. The patient reported no associated symptoms such as abdominal pain, blood in stool, constipation, or diarrhea. Additionally, there were no indications of anemia or elevated liver enzymes in the lab results. The patient was also noted to have bradycardia, with an EKG revealing a heart rate in the 30s upon examination today, although it was documented at 48 beats per minute earlier in the visit. Despite the bradycardia, the patient denied any chest pain, dizziness, presyncope, or syncopal episodes. He is highly active, routinely engaging in cardiovascular and weight training exercises. refused flu vaccine Health Maintenance - Routine physical examination with a fo cus on cardiovascular health. - Follow-up laboratory tests will be per formed to further assess elevated bilirubin levels. - EKG completed due to noted bradycardia . Social History - The patient engages in frequent gym wo rkouts, focusing on extensive cardiovascular and weight training exercises. Review of Systems - Cardiovascular: Denies chest pain, diz ziness, VALENZUELA, or syncope. - Gastrointestinal: Denies abdominal ofe n, blood in stool, constipation, or diarrhea. _denies any anxiety, depression, denies any si or hi Physical Exam General: Cooperative, healthy appearing, comfortable, no acute distress and well developed Orientation: Patient oriented x3 Limitations: No limitations Head: Normal to inspection Ears: Hearing grossly normal bilaterally Nose: Normal external nose present Face and sinus: Normal facial exam Eyes: Appearance normal, both eyes and all related structures Neck: Normal visual inspection and Yes full ROM Respiratory: Normal respiratory effort and able to speak in complete sentences. Clear to auscultation bilaterally Cardiovascular: Bradycardic Normal S1 and S2 GI: Normal to inspection. Soft to palpation and nontender Skin: No rashes or lesions noted Neuro: Patient oriented x3 Extremities: Hands are ice cold, otherwise normal to inspection Results - Labs: Elevated bilirubin level recorde d at 1.3 mg/dL. - Diagnostic Testing: EKG confirms rhonda cardia with heart rate in the 30s. Plan - Repeat laboratory tests to further juaquin luate the cause of elevated bilirubin. - Continue monitoring of heart rate due to bradycardia; patient is instructed to contact me if symptoms arise. - An EKG was conducted due to bradycardi a findings. Patient was informed and verbally consented to the use of an ambient scribe for clinic note documentation during this visit. Discussion Notes I discussed with the patient the current findings of elevated bilirubin and bradycardia. I explained that we would repeat laboratory tests to assess liver function further and monitor his bilirubin levels. Regarding the bradycardia, given his athletic lifestyle, it may be a physiologic adaptation, but we will continue to monitor for any associated symptoms. The patient understood the importance of contacting me should any symptoms such as chest pain, dizziness, or syncope develop. Follow-up care and any necessary adjustments to his health management plan were discussed. Patient Instructions - Report any new symptoms such as chest pain, dizziness, or fainting immediately. - Keep up with regular workouts, but be mindful of any new symptoms. - Await further instructions regarding f ollow-up lab testing for bilirubin assessment. 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 1. Little interest or pleasure in doing things: not at all 2. Feeling down, depressed, or hopeless: not at all 3. Trouble falling or staying asleep, or sleeping too much: not at all 4. Feeling tired or having little energy: several days 5. Poor appetite or overeating: not at all 6. Feeling bad about yourself - or that you are a failure or have let yourself or your family down: not at all 7. Trouble concentrating on things, such as reading the newspaper or watching television: not at all 8. Moving or speaking so slowly that other people could have noticed. Or the opposite - being so fidgety or restless that you have been moving around a lot more than usual: not at all 9. Thoughts that you would be better off or of hurting yourself in some way: not at all Total score: 1 Depression Screening Interpretation: Negative Depression Screening Done: Yes 39796 - PHQ-9 Billing: Yes Source: Developed by Drs. Roberto Carlos Taylor, Stephanie Funes, Jesse Chauhan and colleagues, with an educational ervin from [employer]. Thrive Questionnaire Date Thrive assessed: 08/06/24 I am a: Patient What is your living situation today?: I have a steady place to live Within the past 12 months, did the food you bought not last and you didn't have the money to get more?: Never true Within the past 12 months, did you worry whether your food would run out before you got money to buy more?: Never true Do you have trouble paying for medicines?: No Do you have trouble getting transportation to medical appointments?: No Do you have trouble paying your heating and electricity bill?: No Do you have trouble taking care of your child, family member or friend?: No Do you have trouble with day-to-day activities such as bathing, preparing meals, shopping, managing finances, etc.?: No Are you currently unemployed and looking for a job?: No Are you interested in more education?: No Please select the resources that you would like help with: None Currently or been in a relationship where the following occur: No concerns reported THRIVE Score: 0 AUDIT C Alcohol Use Questionnaire (AUDIT-C) 1. How often do you have a drink containing alcohol?: Monthly or less 2. How many drinks containing alcohol do you have on a typical day when you are drinking?: 1 or 2 3. How often do you have six or more drinks on one occasion?: Never Total Score: 1 CHRISTINE-7 AMB Questionnaire CHRISTINE-7 Date CHRISTINE - 7 assessed: 08/06/24 Feeling nervous, anxious, or on edge: 1 = Several days Not being able to stop or control worryin = Not at all Worrying too much about different things: 0 = Not at all Trouble relaxin = Several days Being so restless that it is hard to sit still: 0 = Not at all Becoming easily annoyed or irritable: 0 = Not at all Feeling afraid as if something awful might happen: 0 = Not at all Total CHRISTINE-7 score (0-4 normal; 5-9 mild; 10-14 moderate; 15-21 severe): 2 Source: Developed by Drs. Roberto Carlos Taylor, Stephanie Funes, Jesse Chauhan and colleagues, with an educational ervin from [employer]. CHRISTINE-7 Assessment Billing CHRISTINE-7 Assessment Tool: CHRISTINE-7 Assessment [id number] Physical exam (Primary Care) Vital Signs: Last Vital Signs Temp 98.4 F 08/06/24 11:05 Pulse 48 L 08/06/24 11:05 BP 110/68 08/06/24 11:05 Pulse Ox 98 08/06/24 11:05 Oxygen Delivery Method Room Air 08/06/24 11:05 BMI result Body Mass Index 23.5 Tobacco/Smoking Status: Tobacco use Status Tobacco use date assessed 08/06/24 08/06/24 11:10 Patient Tobacco Use Status Never used Tobacco 08/06/24 11:10 e-Cigarette/Vaping Use Never Used 08/06/24 11:10 PHQ-9: PHQ-9 Score PHQ-9: Total score 1 08/06/24 11:10 Depression Screening Interpretation: Negative Thrive Assessment: Date of Thrive Assessment Date Thrive assessed 08/06/24 08/06/24 11:10 Currently or been in a relationship where the following occur: No concerns reported Coding Level of Care Code Est Pt Prev Care 40-64y(32985) Diagnoses Physical exam, annual Z00.00 Bradycardia R00.1 Elevated bilirubin R17 Additional Codes CHRISTINE-7 Assessment Billing - CHRISTINE-7 Assessment Tool: CHRISTINE-7 Assessment 61948 ([id number]) PHQ-9 - 31826 - PHQ-9 Billing: Yes ([id number]) Assessment & Plan Assessment & Plan (1) Physical exam, annual: Code(s): Z00.00 - Encounter for general adult medical examination without abnormal findings Category: Medical (2) Bradycardia: Code(s): R00.1 - Bradycardia, unspecified Category: Medical (3) Elevated bilirubin: Code(s): R17 - Unspecified jaundice Category: Medical Plan . Orders: Orders Lipid Panel Today Z00.00 - Encounter for general adult medical examination without abnormal findings Comprehensive [place]. Panel Fast Today Z00.00 - Encounter for general adult medical examination without abnormal findings AMB EKG-In Office Today R00.1 - Bradycardia, unspecified
[2024-08-06 11:05] VITALS: BP 110/68; PULSE 48; TEMP 36.9; O2SAT 98; BMI 23.5
--- OUTSIDE RECORDS SUMMARY | 2024-08-06 12:18 | XMS_ITS | Clinical Summary ---
Author Organization [facility] ity Address [address] [place] [address] Care Team Providers Care Kosher Inspector Name Role Phone Unavailable Primary Care Provider [...]
== END 2024-08-06 11:43 | disposition home or self-care (01) ==
PROVIDERS: PCP Nurse Practitioner Family; Visit Provider Nurse Practitioner Family
DX: Z00.00 Encounter for general adult medical examination without abnormal findings (principal); R00.1 Bradycardia, unspecified; R17 Unspecified jaundice

== ENCOUNTER 2024-10-11 15:34 | Outpatient (REF) | payer BC, SELFPAY ==
--- NOTE | ~2024-10-11 | XR_ITS ---
EXAMINATION: XR LUMBOSACRAL SPINE CLINICAL INFORMATION: M54.50 LOW BACK PAIN COMPARISON: None available. TECHNIQUE: Three views of the lumbosacral spine. FINDINGS: Marginal osteophyte formation, endplate sclerosis and decreased intervertebral disc height L3-4. Facet joint hypertrophy L5-S1. No acute cortical disruption or malalignment. No lytic or blastic lesions. Rudimentary rib on the right side of T12. XR/XR lumbar spine 2-3V IMPRESSION: Spondylosis L3-4. Consider MRI for further imaging evaluation. Electronically signed by: Gilmer James MD 10/14/2024 01:11 PM EDT
--- OUTSIDE RECORDS SUMMARY | 2024-10-11 16:44 | XMS_ITS | Clinical Summary ---
Author Organization [facility] Address [address] [place] [address] Care Team Providers Care Sr Risk Management Consultant Name Role Phone Unavailable Primary Care Provider Unavailabl e Social History Tobacco Use Types Packs/Day Years Used Date Smoking Tobacco: Never Assessed Sex and Gender Information Value Date Recorded Sex Assigned at Not on file Legal Sex Male 9:48 AM EST Gender Identity Not on file Sexual Orientation Not on file Plan of Treatment Health Maintenance Due Date Last Done Comments Hepatitis B Vaccines (1 of 3 - 19+ 3-dose series) 2002 Cholesterol Screening (Lipid Panel) 06/07/2022 Depression Screening 06/07/2022 HIV Screening 06/07/2022 Hepatitis C Screening 06/07/2022 Social Influencers of Health Screening 06/07/2022 COVID-19 Vaccine ( - 2023-2 5 season) 2024 Influenza Vaccine [...] patient's age to complete this topic Meningococcal B Vacine Aged Out No lo nger eligible based on patient's age to complete [...]
== END 2024-10-11 15:35 | disposition home or self-care (01) ==
LOC: HO.HMGCX 15:34
PROVIDERS: PCP Nurse Practitioner Family; Visit Provider Chiropractor
DX: M99.03 Segmental and somatic dysfunction of lumbar region (principal); M54.50 Low back pain, unspecified
CPT/HCPCS: 72100

== ENCOUNTER → 2024-10-11 15:41 | Outpatient (BNV) | payer BC, SELFPAY | PROVIDERS: PCP Nurse Practitioner Family; Visit Provider Radiology Diagnostic Radiology | DX: M54.50 Low back pain, unspecified (principal); M47.816 Spondylosis without myelopathy or radiculopathy, lumbar region | CPT/HCPCS: 72100 ==

== ENCOUNTER 2025-01-20 06:41 | Outpatient (AMB) | payer BC, SELFPAY ==
--- OUTSIDE RECORDS SUMMARY | 2025-01-20 06:44 | XMS_ITS | Clinical Summary ---
Author Organization [facility] Address [address] [place] [address] Care Team Providers Care Tin Recovery Worker Name Role Phone Unavailable Primary Care Provider [...] 2023-2 5 season) 2024 Influenza Vaccine (#1) 2025 DTaP,Tdap,and Td Vaccines (2 - Td or [...] age to complete this topic Meningococcal B Vaccine Aged Out No l onger eligible based on patient's age to complete this topic Pneumococcal Vaccine: Pediat rics (0 to 5 Years) and At-Risk Patients (6 to 49 Years) Aged Out No longer eligi ble based on patient's age to complete this topic RSV Immunization Patients Un marcy 20 months Aged Out No longer eligible b ased on patient's age to complete this topic Varicella Vaccines Aged Out No longer eligible based on patient's age to complete this topic
--- NOTE | 2025-01-20 07:02 | A.OFFPC_ITS ---
Intake Visit Reasons: referral urology Allergies No Known Allergies Allergy (Verified 08/06/24 11:05) Medication List - Last Reconciled 01/20/25 by CATY Pillai No Known Home Meds Tobacco use date assessed: 08/06/24 Dental Screening Dental Screen Date: 08/06/24 HPI referral urology HPI Details History of Present Illness The patient is a 39-year-old male presenting for a vasectomy consultation and management of lower back pain. The patient has three daughters and is seeking a vasectomy as a permanent contraceptive measure. Recently, the patient experienced lower back pain for which he sought care at an urgent care facility. He was prescribed prednisone, which provided significant relief. The patient reports engaging in gym activities, including stretching and exercising, which he finds beneficial. Review of Systems - Musculoskeletal: Reports lower back pa in, improved with prednisone and exercise. - Cardiovascular: Denies chest pain. - Respiratory: Denies shortness of breat h. - Neurological: Denies signs of cauda eq uina syndrome. Plan The patient will be referred to a urologist for a vasectomy consultation to discuss the procedure, risks, benefits, and alternatives. For the management of lower back pain, the patient has been advised to continue with stretching and exercise as tolerated. The use of prednisone has been effective, and no further medication adjustments are necessary at this time. Discussion Notes I discussed with the patient the option of a vasectomy, including the procedure, potential risks, and benefits. We also reviewed the management of his lower back pain, emphasizing the importance of exercise and the effective use of prednisone. Patient Instructions - Follow up with a urologist for vasecto my consultation. - Continue stretching and exercising as tolerated for back pain management. - Monitor for any new or worsening sympt oms and seek care if needed. 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: Yes Cognitive needs: No Hearing needs: No Vision needs: No Questionnaire Thrive Questionnaire Date Thrive assessed: 08/06/24 I am a: Patient What is your living situation today?: I have a steady place to live Within the past 12 months, did the food you bought not last and you didn't have the money to get more?: Never true Within the past 12 months, did you worry whether your food would run out before you got money to buy more?: Never true Do you have trouble paying for medicines?: No Do you have trouble getting transportation to medical appointments?: No Do you have trouble paying your heating and electricity bill?: No Do you have trouble taking care of your child, family member or friend?: No Do you have trouble with day-to-day activities such as bathing, preparing meals, shopping, managing finances, etc.?: No Are you currently unemployed and looking for a job?: No Are you interested in more education?: No Please select the resources that you would like help with: None Currently or been in a relationship where the following occur: No concerns reported THRIVE Score: 0 CHRISTINE-7 AMB Questionnaire CHRISTINE-7 Date CHRISTINE - 7 assessed: 08/06/24 Source: Developed by Drs. Roberto Carlos Taylor, Stephanie Funes, Jesse Chauhan and colleagues, with an educational ervin from [employer]. Physical exam (Primary Care) Tobacco/Smoking Status: Tobacco use Status Tobacco use date assessed 08/06/24 08/06/24 11:10 Patient Tobacco Use Status Never used Tobacco 08/06/24 11:10 e-Cigarette/Vaping Use Never Used 08/06/24 11:10 Thrive Assessment: Date of Thrive Assessment Date Thrive assessed 08/06/24 08/06/24 11:10 Currently or been in a relationship where the following occur: No concerns reported Telehealth Telehealth Telehealth Platform: [facility] Location of provider rendering services: practice address Location of patient: address on file Patient Identification confirmed using: Name, : Yes Telehealth method: video Patient verbally consented to treatment: Yes Patient verbally consented to billing insurance company: Yes Patient informed of any privacy concerns related to visit: Yes Minutes spent on Phone/Video with Pt.: 12 Coding Level of Care Code Tele Est Pt Level 3 (69088) Diagnoses Encounter for vasectomy Z30.2 Vasectomy evaluation Z30.09 Lower back pain M54.50 Assessment & Plan Assessment & Plan (1) Encounter for vasectomy: Code(s): Z30.2 - Encounter for sterilization Category: Medical (2) Vasectomy evaluation: Code(s): Z30.09 - Encounter for other general counseling and advice on contraception Category: Medical (3) Lower back pain: Code(s): M54.50 - Low back pain, unspecified Category: Medical Plan . Orders: Referrals Urology Referral Z30.2 - Encounter for sterilization
== END 2025-01-20 07:46 | disposition home or self-care (01) ==
LOC: HO.HMCC 06:42
PROVIDERS: PCP Nurse Practitioner Family; Visit Provider Nurse Practitioner Family
DX: M54.50 Low back pain, unspecified (principal); Z30.2 Encounter for sterilization; Z30.09 Encounter for other general counseling and advice on contraception

== ENCOUNTER 2025-04-14 14:47 | Outpatient (AMB) | payer BC, SELFPAY ==
--- NOTE | 2025-04-14 15:12 | MHC.OFFVIS ---
Intake Visit Reasons: vasectomy consult Intake Note: pt here today for:CARDIOVASCULAR TECHNICIAN/Vasectomy Consult uro meds:None allergies:None blood thinner:None Pharmaceutical Specialty Representative Required: No Allergies No Known Allergies Allergy (Verified 04/14/25 15:17) Medication List - Last Reconciled 04/14/25 by Aristeo Pacheco MD No Known Home Meds HPI Comments Details: Hola is here for vasectomy counselling. Vasectomy procedure was discussed at length with the patient. He was informed that vasectomy is a safe, permanent, and effective form of control but there are risks involved. It may involve risk of hematoma, procedure failure which is rare, sperm granuloma which may cause mild pain, and congestion which may cause sense of pressure and generally resolves after several weeks. 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 Cognitive needs: No Hearing needs: No Vision needs: No Review of Systems Const All systems reviewed & are unremarkable except as noted in HPI and below Reports no additional complaints Eyes Reports no additional complaints ENT Reports no additional complaints Card Reports no additional complaints Resp Reports no additional complaints GI Reports no additional complaints Reports as per HPI Musc Reports no additional complaints Skin/Breast Reports system reviewed and no additional complaints, except as documented Neuro Reports no additional complaints Psych Reports no additional complaints Endo Reports no additional complaints Ata/Lymph Reports no additional complaints Aller/Immun Reports no additional complaints Physical Exam Const General: healthy appearing, no acute distress and well developed Orientation/consciousness: patient oriented x3 HEENT Head: Yes normocephalic and Yes atraumatic Eyes Conjunctivae: conjunctivae normal Neck Neck: Yes normal visual inspection Chest Chest palpation & inspection: normal inspection of the chest Resp Effort & Inspection: normal respiratory effort GI Inspection: Yes normal to inspection Neuro General: patient oriented x3 Psych Appearance: grossly normal Affect: normal affect Results AMB Urinalysis, Automated UA Leukoctes 0 López/uL Last Edit by Munira Cristiane on 04/14/25 15:29 UA Nitrite Negative Last Edit by Munira Cristiane on 04/14/25 15:29 UA Urobilinogen 0.2 mg/dL Last Edit by Munira Cristiane on 04/14/25 15:29 UA Protein 0 mg/dL Last Edit by Munira Cristiane on 04/14/25 15:29 UA pH 6.0 Last Edit by Munira Cristiane on 04/14/25 15:29 UA Blood 0 Placido/uL Last Edit by Munira Cristiane on 04/14/25 15:29 UA Specific [place] 1.015 Last Edit by Munira Cristiane on 04/14/25 15:29 UA Ketone Negative Last Edit by Munira Cristiane on 04/14/25 15:29 UA Bilirubin 0 mg/dL Last Edit by Munira Cristiane on 04/14/25 15:29 UA Glucose 0 mg/dL Last Edit by Munira Cristiane on 04/14/25 15:29 Results Reviewed Results Reviewed: Laboratory Last Values Urine pH (Auto) 6.0 04/14/25 15:18 Specific [place] (Auto) 1.015 04/14/25 15:18 Urine Protein (Auto) 0 mg/dL 04/14/25 15:18 Glucose (UA)(Auto) 0 mg/dL 04/14/25 15:18 Urine Ketones (Auto) Negative 04/14/25 15:18 Urine Blood (Auto) 0 Placido/uL 04/14/25 15:18 Urine Nitrite (Auto) Negative 04/14/25 15:18 Urine Bilirubin (Auto) 0 mg/dL 10/06/25 15:18 Urine Urobilinogen (Auto) 0.2 mg/dL 04/14/25 15:18 Leukocyte Esterase (Auto) 0 López/uL 04/14/25 15:18 Assessment & Plan Assessment & Plan (1) Anxiety about health: Code(s): R45.89 - Other symptoms and signs involving emotional state Category: Medical (2) Encounter for vasectomy counseling: Code(s): Z30.09 - Encounter for other general counseling and advice on contraception Category: Medical Plan Schedule bilateral vasectomy outpatient Orders: Orders AMB Urinalysis Automated Today Z13.9 - Encounter for screening, unspecified Patient Instructions: The patient had an opportunity to ask questions regarding treatment plan. The patient expressed understanding and agreement with the above treatment plan. The patient is aware they should contact our office by phone for worsening of their current condition or the appearance of new symptoms. Compliance is encouraged with any medications and followup testing that is ordered. It is a privilege to be allowed the opportunity to participate in the urologic care of your patient. If you have any questions or concerns regarding treatment for the above conditions please do not hesitate to contact me. The office telephone contact is [phone]. This note is constructed in part using voice recognition software. While every effort has been made to ensure accuracy dicer machine operator errors may have been included. Yours sincerely, Aristeo Pacheco MD Coding Level of Care Code New Pt Level 4 (87730) Diagnoses Anxiety about health R45.89 Encounter for vasectomy counseling Z30.09
--- OUTSIDE RECORDS SUMMARY | 2025-04-14 17:12 | XMS_ITS | Clinical Summary ---
Author Organization [facility] Address [address] [place] [address] Care Team Providers Care Regrind Mill Operator Name Role Phone Unavailable Primary Care Provider [...] of 3 - 19+ 3-dose series) 2002 HPV Vaccines (1 - 3-dose SCD M series) 2010 Cholesterol Screening (Lipid Panel) 06/07/2022 HIV Screening 06/07/2022 Hepatitis C Screening 06/07/2022 Social Influencers of Health Screening 06/07/2022 Depression Screening 07/10/2024 COVID-19 Vaccine ( - 2023-2 5 season) 2025 Influenza Vaccine (#1) 2025 DTaP,Tdap,and Td Vaccines (2 - Td or Tdap) 04/22/2032 04/22/2022 RSV Immunization Adult Patie nts (1 - 1-dose 75+ series) 2058 HIB Vaccines Aged Out No longer eligi [...]
== END 2025-04-14 16:14 | disposition home or self-care (01) ==
LOC: HO.HUSH 14:48
PROVIDERS: PCP Nurse Practitioner Family; Visit Provider Urology
DX: R45.89 Other symptoms and signs involving emotional state (principal); Z30.09 Encounter for other general counseling and advice on contraception; Z13.9 Encounter for screening, unspecified
CPT/HCPCS: 99204

== ENCOUNTER → 2025-04-14 14:47 | Outpatient (BNVA) | payer BC, SELFPAY | PROVIDERS: PCP Nurse Practitioner Family; Visit Provider Urology | DX: Z30.09 Encounter for other general counseling and advice on contraception (principal); R45.89 Other symptoms and signs involving emotional state | CPT/HCPCS: 81003 ==

== ENCOUNTER 2025-05-13 08:35 | Day surgery (SDC) | payer BC, SELFPAY ==
--- OUTSIDE RECORDS SUMMARY | 2025-05-01 16:46 | XMS_ITS | Clinical Summary ---
Author Organization [facility] Address [address] [place] [address] Care Team Providers Care Revival Clerk Name Role Phone Unavailable Primary Care Provider [...]
--- OUTSIDE RECORDS SUMMARY | 2025-05-01 16:46 | XMS_ITS ---
Author Name [facility] Organization Unknown Encounters Encounter Type Encounter Reason Primary Diagnosis Location Date Ambulatory [facility]) 04/20/2025 Care Team Organization Name Specialty Phone Email Start Date End [facility] 04[facility]25 [facility]2025
[2025-05-09 08:39] VITALS: BMI 23.5
--- NOTE | 2025-05-09 10:21 | P.CONAN_ITS ---
Documented by User: Melissa Day NP 05/09/25 10:21 HPI - Anesthesia Eval Consult details Narrative: 39 yr old male for vasectomy PMFSH Active Problems Active Problems: All Active Problems Encounter for vasectomy counseling (Acute) Anxiety about health (Acute) Lower back pain (Acute) Vasectomy evaluation (Acute) Encounter for vasectomy (Acute) Bradycardia (Acute) Influenza-like illness (Acute) Leukopenia (Acute) Elevated bilirubin (Acute) Elevated liver enzymes (Acute) Physical exam, annual (Acute) S/P Achilles tendon repair (Acute) Complete rupture of left Achilles tendon (Acute) Strain of Achilles tendon (Acute) Right foot pain (Acute) Past Medical History Medical History No significant medical problems Family History Family History Maternal Uncle Substance use disorder Father Substance use disorder Surgical History Surgical History Hx of eye surgery Hx of Achilles tendon repair Social History Social History Housing: House Are you a primary health care legal assistant to a significant other at home: Yes Do you presently have visiting nurse or other home services: No Patient Tobacco Use Status: Never used Tobacco e-Cigarette/Vaping Use: Never Used Second Hand Smoke Exposure: No Use of substances other than those prescribed or required for medical reasons: No Are you DNR?: No Advance Directives: No Advance Directives Information Provided: Yes service: No Current occupational status: employed 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 Cognitive needs: No Hearing needs: No Vision needs: No Meds Allergies Allergy/AdvReac Type Severity Reaction Status Date / Time No Known Allergies Allergy Verified 05/13/25 10:04 Home Medications ?Medication ?Instructions ?Recorded ?Confirmed ?Last Taken ?Type No Known Home Meds 08/06/24 05/09/25 Un known History Exam Height,Weight and Vital Signs: Height 6 ft Weight 78.471 kg Documented by User: Andre Calzada MD 05/13/25 10:27 [facility] Past Medical History Medical History No significant medical problems Family History Family History Maternal Uncle Substance use disorder Father Substance use disorder Family history of problems with anesthesia: No Surgical History Surgical History Hx of eye surgery Hx of Achilles tendon repair History of Problems with Anesthesia: No Social History Social History Housing: House Are you a primary health care legal assistant to a significant other at home: Yes Do you presently have visiting nurse or other home services: No Patient Tobacco Use Status: Never used Tobacco e-Cigarette/Vaping Use: Never Used Second Hand Smoke Exposure: No Use of substances other than those prescribed or required for medical reasons: No Are you DNR?: No Advance Directives: No Advance Directives Information Provided: Yes service: No Current occupational status: employed 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 Cognitive needs: No Hearing needs: No Vision needs: No Meds Allergies Allergy/AdvReac Type Severity Reaction Status Date / Time No Known Allergies Allergy Verified 05/13/25 10:04 Home Medications ?Medication ?Instructions ?Recorded ?Confirmed ?Last Taken ?Type No Known Home Meds 08/06/24 05/09/25 Un known History Exam Exam Date and Time: 05/13/25 Pertinent Lab Results Pertinent Lab Results: 1:07/13/24 Airway Mallampati Class: II TM Dist: >3cm Neck ROM: Full Heart: normal Lungs: normal Other: normal Assessment and Plan Final Anesthetic Review Family History of Problems with Anesthesia: No History of Problems with Anesthesia: No NPO: Yes Final Preanesthetic Review: No Changes in Pt Med Stat, Meds/Allgs Chart Reviewed, Consent Obtained/Reviewed and Anes Risks/Benef Reviewed Patient Risk: Low Procedure Risk: Low Anesthetic Plan Anesthetic Plan: GA Disposition: Standard PACU
[2025-05-13 10:04] VITALS: BP 122/66; PULSE 47; RESP 16; TEMP 36.9; O2SAT 98; BMI 24.5
[2025-05-13] MEDS: Lactated Ringers 1,000 ML 100 ML IVCONT (10:16)
--- NOTE | 2025-05-13 10:17 | MHC.SHP ---
Pre-Procedural Eval Section A - 24 Hr Update-Section A only Date of Service: 05/13/25 The patient is an INPATIENT: No The patient has been examined within 24 hours of the surgical procedure. The History & Physical has been completed within 30 days and I have reviewed it.: Yes Section B - Complete if H&P > 30 days Chief Complaint: Encounter for other general counseling and advice Allergies: Allergies Allergy/AdvReac Type Severity Reaction Status Date / Time No Known Allergies Allergy Verified 05/13/25 10:04 Plan Diagnosis/Plan: Unchanged I have reviewed the history and physical and performed a pertinent physical examination on my patient. No changes have occurred unless specified. Vasectomy procedure was discussed at length with the patient. Risk of hematoma, procedure failure which is rare, sperm granuloma which may cause mild pain, and congestion which may cause sense of pressure and generally resolves after several weeks. 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 Time Spent With Patient Time: Total time managing care of this patient today ____ minutes.
--- NOTE | 2025-05-13 10:17 | W.PM.OPN ---
Operative Note Operative Note Date of Service: 05/13/25 Narrative: Preoperative diagnosis: Anxiety regarding Postoperative diagnosis: Anxiety regarding unplanned Procedure: Bilateral vasectomy Surgeon: Dr. Aristeo Pacheco Anesthesia: General Details of procedure:? The patient was brought into the operating room placed on the OR table in supine position.? 2 g of Ancef IV.? General anesthesia was administered.? The patient was prepped and draped in the usual sterile fashion. ? Time-out was done per protocol.? Both vasa were palpated through the skin using a 3 finger technique and at the penoscrotal junction. Starting on the left, the vas was elevated using a 3 finger grasping technique. Using the 15 blade knife an incision was made over the vas followed by a sharp spreading instrument the fascia was spread longitudinally in line with the vasa. The vasa was elevated from the scrotum using a ring clamp. Sharp and blunt dissection was used divide the vasal sheath and to strip the vasal sheath from the vasa. The vasal sheath was dissected from the vas in a proximal and distal fashion. This allowed the blood vessels of the vasa to retract from the vasa. The vasa was grasped with a forcep clamp on both sides and elevated from the incision. The vas was clamped on either side and a segment sent for path. 3.0 vicryl was used to apply a suture tie to the vasa and the needle tip cautery was used to cauterize the proximal and caudal end of the vas. Using 3 -0 vicryl, the fascia was used to over lay and bury the proximal end of the vas. The similar procedure was repeated on the right side. Both skin incisions were closed with 3-0 chromic. Lidocaine plain was inflitrated into the scrotal skin in the region of the incisions for local analgesia. Bacitracin ointment was applied. The patient tolerated the procedure well. He was brought out of anesthesia. He understands the need to continue to use control methods. A semen sample should be brought for inspection under the microscope in 12 weeks. Drains: none Complications: none
[2025-05-13 12:25] VITALS: BP 110/70; PULSE 75; RESP 16; TEMP 36.3; O2SAT 100
[2025-05-13 12:30] VITALS: BP 122/61; PULSE 59; RESP 17; O2SAT 97
[2025-05-13 12:35] VITALS: BP 122/61; PULSE 57; RESP 15; O2SAT 99
[2025-05-13 12:40] VITALS: BP 118/67; PULSE 58; RESP 18; O2SAT 94
[2025-05-13 12:55] VITALS: BP 117/76; PULSE 52; RESP 17; TEMP 36.3; O2SAT 95
== END 2025-05-13 13:36 | disposition home or self-care (01) ==
PROVIDERS: PCP Nurse Practitioner Family; Visit Provider Urology
PROC: (CPT 55250; principal; 2025-05-13 09:50)
DX: Z30.2 Encounter for sterilization (principal); R45.89 Other symptoms and signs involving emotional state; F41.9 Anxiety disorder, unspecified
CPT/HCPCS: 55250; 88302; J0690; J1100; J1171; J2003; J2704; J3010

== ENCOUNTER → 2025-05-13 08:35 | Outpatient (BNV) | payer BC, SELFPAY | PROVIDERS: PCP Nurse Practitioner Family; Visit Provider Urology | DX: Z30.2 Encounter for sterilization (principal) | CPT/HCPCS: 55250 ==